=== PATIENT | male | born 1965 | race Two or more races ===

== ENCOUNTER 2018-10-09 15:59 | Outpatient (CLI) | payer OTHER | END 2018-10-09 16:11 | disposition home or self-care (01) | LOC: LAB 15:59 | DX: R10.13 Epigastric pain (principal); Z12.11 Encounter for screening for malignant neoplasm of colon ==

== ENCOUNTER → 2018-10-17 | Outpatient (CLI) | payer OTHER | END | disposition home or self-care (01) | LOC: NUCLEAR 07:00 | DX: K82.8 Other specified diseases of gallbladder (principal) | CPT/HCPCS: 78227; A9537 ==

== ENCOUNTER → 2019-03-01 | Outpatient (CLI) | payer OTHER | END | disposition home or self-care (01) | LOC: MAMO-SONO 07:45 → SONOGRAMA 10:32 | DX: R10.84 Generalized abdominal pain (principal) ==

== ENCOUNTER 2021-10-25 09:57 | Outpatient (CLI) | payer OTHER | END 2021-10-25 10:01 | disposition home or self-care (01) | LOC: SONOGRAMA 09:57 | PROVIDERS: ATTEND Pathology Anatomic Pathology & Clinical Pathology | DX: E04.1 Nontoxic single thyroid nodule (principal) ==

== ENCOUNTER 2022-11-09 14:31 | Outpatient (CLI) | payer OTHER | END 2022-11-09 14:42 | disposition home or self-care (01) | LOC: MRI 14:31 | DX: G31.84 Mild cognitive impairment of uncertain or unknown etiology (principal) | CPT/HCPCS: 70551 ==

== ENCOUNTER 2023-01-31 12:32 | Outpatient (CLI) | payer OTHER | END 2023-01-31 12:33 | disposition home or self-care (01) | LOC: NUCLEAR 12:32 | PROVIDERS: ATTEND Internal Medicine Gastroenterology | DX: K81.1 Chronic cholecystitis (principal) ==

== ENCOUNTER 2023-06-06 10:34 | Outpatient (CLI) | payer OTHER ==
[~2023-06-06 10:34] MED LIST: BELSOMRA20 MG PO; CLONAZEPAM0.5 M1 PO; DOXEPIN HC10 MG/1 ML PO; ESCITALOPRAM OX20 MG PO; JANUMET XR 50-1 EAC1 PO; LIPITOR20 MG PO; PROTONIX40 MG PO; SYNTHROID88 MCG PO; TAMS0.4C PO
[2023-06-07] MEDS ORDERED: PERCOCET 5-3251 EACH PO (13:41)
== END 2023-06-06 10:35 | disposition home or self-care (01) ==
LOC: MRI 10:34
DX: K80.50 Calculus of bile duct without cholangitis or cholecystitis without obstruction (principal); K80.63 Calculus of gallbladder and bile duct with acute cholecystitis with obstruction
CPT/HCPCS: 74181

== ENCOUNTER 2023-06-07 05:23 | Day surgery (SDC) | payer OTHER ==
[2023-06-02 13:06] LABS: HEMOGLOBIN 15.7 g/dL (13-16.00); MEAN CELL VOLUME 86.8 fL (80.0-100.00); MEAN CORPUSCULAR HEMOGLOBIN 29.1 pg (27.00-32.0); MEAN CORPUSCULAR HGB CONC 33.5 g/dl (32.0-36.0); PLATELET COUNT 244 K/uL (150-450); RED BLOOD COUNT 5.41 M/uL (4.00-6.00); RED CELL DISTRIBUTION WIDTH 13.2 % (11.5-14.5)
[2023-06-02 13:32] LABS: BILIRUBIN TOTAL 2.31 mg/dL (0.3-1.2); BILIRUBIN,CONJUGATED 0.38 mg/dL (0.0-0.2); CALCIUM 8.9 mg/dL (8.5-10.1); CREATININE SERUM 1.3 mg/dL (0.70-1.30); GFR 56.5; POTASSIUM 4.44 mEq/L (3.5-5.1); TOTAL PROTEIN 7.7 gm/dL (6.4-8.2)
[2023-06-02 13:41] LABS: INR 1.04; PARTIAL THROMBOPLASTIN TIME 28.9 SECONDS (22.0-34.0); PROTHROMBIN TIME 10.9 SECONDS (9.0-11.5)
[~2023-06-07] VITALS: Ht 182.9 cm; Wt 88.9 kg
[2023-06-07] MEDS ORDERED: PERCOCET 5-3251 EACH PO (13:41)
== END 2023-06-07 16:40 | disposition home or self-care (01) ==
LOC: CIR.AMB 05:23
PROVIDERS: ATTEND Surgery
DX: K80.10 Calculus of gallbladder with chronic cholecystitis without obstruction (principal); Z20.822 Contact with and (suspected) exposure to COVID-19; Z88.0 Allergy status to penicillin; I10 Essential (primary) hypertension; E78.5 Hyperlipidemia, unspecified; E11.9 Type 2 diabetes mellitus without complications